=== PATIENT | male | born 1980 | race Caucasian/White ===

== ENCOUNTER 2018-12-26 21:16 | Emergency (ER) | payer BC ==
[2018-12-26 21:21] VITALS: BP 113/87
[2018-12-26] MEDS ORDERED: IPRATROPIUM/ALBUTEROL 3 ML DEYVIAL ONE (21:23)
[2018-12-26] MEDS ORDERED: IPRATROPIUM/ALBUTEROL 3 ML DEYVIAL IH ONE (21:35)
[2018-12-26] MEDS ORDERED: ALBUTEROL 3 ML DEYVIAL IH ONE ×2 (21:49→22:21)
[2018-12-26] MEDS ORDERED: predniSONE 20 MG TAB PO ONE (21:49)
--- NOTE | 2018-12-26 21:53 | EDPHY ---
H & P Time Seen by Provider: 12/26/18 21:41 HPI/ROS: CHIEF COMPLAINT: Asthma exacerbation HISTORY OF PRESENT ILLNESS: The patient is a 38-year-old male with a history of asthma the presents emergency department feeling as though he has a asthma exacerbation. Patient states he has been using his inhaler slightly more recently. Today he is symptoms worsen. He feels as though he is tight with typical asthma symptoms. No recent fevers or chills. He does not feel as though he has a cold. No sick contacts. Patient denies smoking. REVIEW OF SYSTEMS: 10 systems were reveiwed and are negative with the exception of the elements mentioned in the history of present illness. Past Medical/Surgical History: Includes asthma social history: Patient does not smoke Smoking Status: Never smoked Physical Exam: 36.4, 113/87, 110, 22, 95% on room air GENERAL: Well-appearing, in no acute distress, alert. HEENT: Eyes normal to inspection, normal pharynx, no signs of dehydration. NECK: Normal, supple. RESPIRATORY: Mild increased work of breathing. Diffuse wheezing. No rales or rhonchi CVS: Regular rate and rhythm, no rubs, murmurs, or gallops. ABDOMEN: Soft, nontender, nondistended, no organomegaly. BACK: Normal to inspection, no CVA tenderness. SKIN: Normal color, no rash, warm, dry. No pallor. EXTREMITIES: No pedal edema, no joint swelling. No calf tenderness. NEURO/PSYCH: Alert and oriented, normal mood and affect, normal motor sensory exam. Constitutional: Initial Vital Signs Temperature (C) 36.4 C 12/26/18 21:19 Heart Rate 110 H 12/26/18 21:19 Respiratory Rate 22 H 12/26/18 21:19 Blood Pressure 113/87 H 12/26/18 21:19 O2 Sat (%) 95 12/26/18 21:19 O2 Delivery Mode Room Air Allergies/Adverse Reactions: pollen extracts Allergy (Verified 12/26/18 21:19) Home Medications: Medication Instructions Recorded Albuterol 12/26/18 predniSONE 20 mg PO DAILY 4 Days tab 12/26/18 Medical Decision Making ED Course/Re-evaluation: In the emergency department I discussed possible etiologies with the patient. I answered all his questions. He was given a DuoNeb followed by an albuterol neb. He is given prednisone 60 mg orally. I do not feel the patient needs imaging at this time. On recheck the patient was still having wheezing. He stated he was feeling much better. He was given a 2nd albuterol neb. On recheck the patient stated he was feeling better. He requested 1 more nebulizer treatment. A 3rd albuterol neb was given. 2250: I rechecked the patient. He stated he was feeling better. He still had scattered wheezing but he was moving air. He had no signs accessory muscle use or retractions. He was given warnings prior to leaving. He will continue to take his entire prescription of prednisone. Differential Diagnosis: My differential includes but is not limited to asthma, pneumonia, bronchitis, influenza, bacteremia - Data Points Medications Given: Discontinued Medications Albuterol (Proventil Neb) 3 ml IH EDNOW ONE Stop: 12/26/18 21:50 Last Admin: 12/26/18 22:01 Dose: 3 ml Albuterol (Proventil Neb) 3 ml IH EDNOW ONE Stop: 12/26/18 22:22 Last Admin: 12/26/18 22:22 Dose: 3 ml Albuterol/Ipratropium (Duoneb) 3 ml IH EDNOW ONE Stop: 12/26/18 21:36 Last Admin: 12/26/18 21:40 Dose: 3 ml Prednisone (Prednisone) 60 mg PO EDNOW ONE Stop: 12/26/18 21:50 Last Admin: 12/26/18 22:01 Dose: 60 mg Departure - Departure Disposition: Home, Routine, Self-Care Clinical Impression: Exacerbation of asthma Qualifiers: Asthma severity: moderate Asthma persistence: unspecified Qualified Code(s): J45.901 - Unspecified asthma with (acute) exacerbation Condition: Good Instructions: Asthma (ED) Additional Instructions: Return with increasing shortness of breath, fever or any other concerns. Take your entire course of steroid. Referrals: Edie Tijerina MD [Medical Doctor] - 5-7 days, call for appt. Prescriptions: predniSONE 20 mg PO DAILY 4 Days tab
[2018-12-26] MEDS ORDERED: ALBUTEROL 3 ML DEYVIAL ONE (22:20)
[2018-12-26] MEDS ORDERED: ALBUTEROL INH PREPACK MDI TAKEHOME ONE (23:02)
== END 2018-12-26 23:29 | disposition home or self-care (01) ==
DX: J45.901 Unspecified asthma with (acute) exacerbation (principal)
CPT/HCPCS: J7512; J7613